=== PATIENT | female | born 1995 | race Caucasian/White ===

== ENCOUNTER 2016-12-24 16:54 | Emergency (ER) | payer BC ==
[2016-12-24 19:58] LABS: Hematocrit 37 % (35-47); Hemoglobin 12.1 g/dl (12.0-16.0); Mean Corpuscular HGB Conc 33 g/dl (31-36); Mean Corpuscular Hemoglobin 29 pg (27-31); Mean Corpuscular Volume 88 fL (80-97); Mean Platelet Volume 9 um3 (7.4-10.4); Red Blood Count 4.15 10^6/ul (4.0-5.4); Red Cell Distribution Width 14 % (10.5-15); White Blood Count 12.6 10^3/ul (3.5-10.8)
[2016-12-24 20:28] LABS: ALT 16 U/L (7-52); AST 19 U/L (13-39); Albumin 4.4 g/dL (3.2-5.2); Alkaline Phosphatase 65 U/L (34-104); Anion Gap 7 mmol/L (2-11); BUN/Creatinine Ratio 15.4 (8-20); Blood Urea Nitrogen 14 mg/dL (6-24); C Reactive Protein < 1.00 mg/L (< 5.00); CO2 Carbon Dioxide 27 mmol/L (22-32); Calcium 9.7 mg/dL (8.6-10.3); Chloride 101 mmol/L (101-111); EGFR African American 100.4 (>60); Globulin 2.9 g/dL (2-4); Glucose 123 mg/dL (70-100); Potassium 3.9 mmol/L (3.5-5.0); Sodium 135 mmol/L (133-145); Total Protein 7.3 g/dL (6.4-8.9)
[2016-12-24] MEDS ORDERED: Iohexol 300* (CONTRAST) 10 ML SDV IV ONE (20:37)
--- NOTE | 2016-12-24 21:35 | RAD ---
INDICATION: Headache. COMPARISON: There are no prior studies available for comparison. TECHNIQUE: Contiguous axial sections of the brain were obtained from the skull base to the vertex without and with contrast following intravenous injection of 75 ml of Omnipaque 300 nonionic contrast. FINDINGS: The ventricles, cisterns and sulci are within normal limits. No significant focal abnormality or mass effect is seen. There is no evidence for hemorrhage. No abnormal area of enhancement is seen. No significant focal osseous abnormality is seen. There is mild mucosal thickening in the ethmoid air cells. The visualized portion of the paranasal sinuses and mastoid air cells otherwise appear clear. IMPRESSION: NO EVIDENCE FOR ACUTE INTRACRANIAL ABNORMALITY.
--- NOTE | 2016-12-24 21:45 | RAD ---
INDICATION: Sinus pain. COMPARISON: There are no prior studies available for comparison. TECHNIQUE: Contiguous axial sections of the axial images of the sinuses were obtained and reconstructed in the coronal and sagittal planes. The exam was performed without and with intravenous contrast enhancement following intervenous injection of 75 mL of Omnipaque 300 nonionic contrast. FINDINGS: There is mild mucosal thickening within the maxillary sinuses and a small air-fluid level within the left maxillary sinus. There is opacification of several bilateral ethmoid air cells. The frontal and sphenoid sinuses appear clear. There is mucosal also plugging around both ostiomeatal complexes. The mastoid air cells appear clear. No soft tissue fluid collection or abnormal area of enhancement is seen. There is moderate deviation of the nasal septum toward the right side. The nasal passageways were otherwise clear. IMPRESSION: MILD BILATERAL ETHMOID AND MAXILLARY SINUSITIS.
[2016-12-24] MEDS ORDERED: oxyCODONE/Acetamin 5/325 MG* TAB PO ONE (23:00)
[2016-12-24 23:13] VITALS: BP 130/85
--- NOTE | 2016-12-24 23:52 | ED ---
Leonie Shukla Erika, scribed for Mariano Zavala MD on 12/24/16 at 1939 . Throat Pain/Nasal Congestion - HPI Summary HPI Summary: Patient is a 21-year-old female presenting to the ED with a CC of sinus pressure starting 2 weeks ago, and worsening since. She reports that she was seen at the health center at her school when the symptoms first started, and was put on doxycycline for 1 week, which did not alleviate her symptoms. Pt then started augmentin, which she has been taking for the last 3 days, but this also has not alleviated her symptoms. Currently, pt reports pressure behind her eyes, swelling around her eyes, photophobia, and headache, but she denies neck pain. She states she has also developed nausea after starting her medication. She states that her symptoms have not been improved by Advil, nasal spray, a neti pot, and mucinex - pt reports she has been unable to sleep due to the pain. Pain is aggravated by lying down. Pt was seen by Dr. Barragan yesterday , who recommended CT. Pt recently was traveling, as she was in [place] for winter. - History of Current Complaint Chief Complaint: EDGeneral Time Seen by Provider: 12/24/16 19:16 Hx Obtained From: Patient Onset/Duration: Gradual Onset, Lasting Weeks, Still Present Severity: Moderate Associated Signs And Symptoms: Positive: Sinus Discomfort Cough: None - Allergies/Home Medications Allergies/Adverse Reactions: Allergies Allergy/AdvReac Type Severity Reaction Status Date / Time No Known Allergies Allergy Verified 12/24/16 22:35 PMH/Surg Hx/FS Hx/Imm Hx Endocrine/Hematology History: Reports: Hx Thyroid Disease - Jodie's Denies: Hx Diabetes Infectious Disease History: No Infectious Disease History: Denies: Traveled Outside the [place] in Last 30 Days - Family History Known Family History: Positive: Cardiac Disease, Diabetes - Social History Occupation: Student Alcohol Use: Weekly Substance Use Type: Reports: Marijuana Hx Tobacco Use: No Review of Systems Eyes: Other - swelling around eyes Positive: Photophobia ENT: Other - sinus pressure Positive: Nausea Positive: Headache All Other Systems Reviewed And Are Negative: Yes Physical Exam Triage Information Reviewed: Yes Vital Signs On Initial Exam: Initial Vitals Temp Pulse Resp BP Pulse Ox 98.3 F 78 20 134/72 100 12/24/16 16:59 12/24/16 16:59 12/24/16 16:59 12/24/16 16:59 12/24/16 16:59 Vital Signs Reviewed: Yes Appearance: Positive: Well-Appearing, No Pain Distress Skin: Positive: Warm, Skin Color Reflects Adequate Perfusion, Dry Head/Face: Positive: Normal Head/Face Inspection Eyes: Positive: Normal ENT: Positive: Normal ENT inspection Neck: Positive: Supple, Nontender Respiratory/Lung Sounds: Positive: Clear to Auscultation, Breath Sounds Present Cardiovascular: Positive: RRR Abdomen Description: Positive: Nontender, Soft Bowel Sounds: Positive: Present Musculoskeletal: Positive: Normal Neurological: Positive: Normal Psychiatric: Positive: Affect/Mood Appropriate Diagnostics - Vital Signs Vital Signs Temp Pulse Resp BP Pulse Ox 12/24/16 18:22 98.3 F 68 20 139/65 99 12/24/16 16:59 98.3 F 78 20 134/72 100 - Laboratory Lab Results: Lab Results 12/24/16 12/24/16 Range/Units 19:42 19:42 WBC 12.6 H (3.5-10.8) 10^3/ul RBC 4.15 (4.0-5.4) 10^6/ul Hgb 12.1 (12.0-16.0) g/dl Hct 37 (35-47) % MCV 88 (80-97) fL MCH 29 (27-31) pg MCHC 33 (31-36) g/dl RDW 14 (10.5-15) % Plt Count 329 (150-450) 10^3/ul MPV 9 (7.4-10.4) um3 Neut % (Auto) 86.4 H (38-83) % Lymph % (Auto) 8.9 L (25-47) % Leake % (Auto) 4.6 (1-9) % Eos % (Auto) 0 (0-6) % Baso % (Auto) 0.1 (0-2) % Absolute Neuts (auto) 10.9 H (1.5-7.7) 10^3/ul Absolute Lymphs (auto) 1.1 (1.0-4.8) 10^3/ul Absolute Monos (auto) 0.6 (0-0.8) 10^3/ul Absolute Eos (auto) 0 (0-0.6) 10^3/ul Absolute Basos (auto) 0 (0-0.2) 10^3/ul Absolute Nucleated RBC 0 10^3/ul Nucleated RBC % 0 Sodium 135 (133-145) mmol/L Potassium 3.9 (3.5-5.0) mmol/L Chloride 101 (101-111) mmol/L Carbon Dioxide 27 (22-32) mmol/L Anion Gap 7 (2-11) mmol/L BUN 14 (6-24) mg/dL Creatinine 0.91 (0.51-0.95) mg/dL Est GFR ( Amer) 100.4 (>60) Est GFR (Non-Af Amer) 78.0 (>60) BUN/Creatinine Ratio 15.4 (8-20) Glucose 123 H (70-100) mg/dL Calcium 9.7 (8.6-10.3) mg/dL Total Bilirubin 0.30 (0.2-1.0) mg/dL AST 19 (13-39) U/L ALT 16 (7-52) U/L Alkaline Phosphatase 65 (34-104) U/L C-Reactive Protein < 1.00 (< 5.00) mg/L Total Protein 7.3 (6.4-8.9) g/dL Albumin 4.4 (3.2-5.2) g/dL Globulin 2.9 (2-4) g/dL Albumin/Globulin Ratio 1.5 (1-3) Result Diagrams: 12/24/16 19:42 12/24/16 19:42 Lab Statement: Any lab studies that have been ordered have been reviewed, and results considered in the medical decision making process. - CT Brain CT CT Interpretation Completed By: Radiologist - IMPRESSION: NO EVIDENCE FOR ACUTE INTRACRANIAL ABNORMALITY. Maxillofacial CT CT Interpretation Completed By: Radiologist - IMPRESSION: MILD BILATERAL ETHMOID AND MAXILLARY SINUSITIS. Re-Evaluation - Re-Evaluation First Eval Re-Evaluation Time: 22:35 Change: Improved Comment: Patient will be discharged at this time EENT Course/Dx - Course Course Of Treatment: Simran Us presented having been treated for sinusitis for a couple weeks but still having a lot of pain behind and between her eyes. Dr. Barragan had apparently called earlier and recommended CT of the brain and sinuses and these were obtained and positive only for sinusitis. I gave here some pain medication and recommended she contact Dr. Barragan for F/U plans. - Diagnoses Provider Diagnoses: Sinusitis Discharge - Discharge Plan Condition: Stable Disposition: HOME Prescriptions: oxyCODONE/Acetamin 5/325 MG* [Percocet 5/325 TAB*] 1 tab PO Q6H PRN #20 tab MDD 4 PRN Reason: Pain Patient Education Materials: Sinusitis (ED) Referrals: [facility] [Primary Care Provider] - Josh Barragan MD [Medical Doctor] - If Needed Additional Instructions: Please continue taking the augmentin. The documentation as recorded by the Leonie moses Erika accurately reflects the service I personally performed and the decisions made by me, Mariano Zavala MD.
== END 2016-12-24 23:11 | disposition home or self-care (01) ==
LOC: ED 16:54
DX: J32.9 Chronic sinusitis, unspecified (principal); H53.149 Visual discomfort, unspecified; R11.0 Nausea; R51 Headache
CPT/HCPCS: 36415; 70470; 70488; 80053; 85025; 86140; 99282; A9270-GY; Q9967